=== PATIENT | female | born 1955 | race Caucasian/White ===

== ENCOUNTER 2024-06-05 10:31 | Day surgery (SDC) | payer MEDICARE ==
[~2024-06-05] VITALS: Ht 167.6 cm; Wt 91.3 kg
[~2024-06-05 10:31] MED LIST: AMLO1TAB24 PO; ASPI81TA26 PO; ATOR80TA59 PO; B-122500 PO; CALC600T86 PO; CLON0.5T2 PO; D3 H2000 PO; DICY-61 PO; FAMO1TAB11 PO; GABA-1172 PO; LR 1,000 ML IV SCH; MELA5TAB9 PO; MIDAZOLAM INJ 2MG/2ML VIAL As Ordered ONE; PANT20TA6 PO; PRO-CAP PO; SERT50TA29 PO; TRAM50TA2 PO; fentaNYL 100 MCG/2 ML INJECTION As Ordered ONE
[2024-06-05] MEDS: CYCLOPENTOLATE 1% OPHTH SOLN 2ML BTL OD SCH (12:14)
[2024-06-05] MEDS: TETRACAINE 0.5% OPHTH SOLN 4ML OD SCH (12:14)
[2024-06-05] MEDS: PHENYLEPHRINE 2.5% OPHTH SOL 2ML OD SCH (12:14)
[2024-06-05] MEDS: FLURBIPROFEN 0.03% OPHTH SOLN 2.5 ML OD SCH (12:14)
[2024-06-05] MEDS: LIDOCAINE 1% SDV 5ML VIAL As Ordered ONE (13:54)
[2024-06-05] MEDS: CEFUROXIME 1MG/0.1ML INTRACAMERAL INJ As Ordered ONE (13:54)
[2024-06-05 14:18] VITALS: BP 165/67; TEMP 97; O2SAT 93
== END 2024-06-05 15:00 | disposition home or self-care (01) ==
LOC: M SDC 10:31
PROVIDERS: ATTEND Ophthalmology
DX: H25.11 Age-related nuclear cataract, right eye (principal); I10 Essential (primary) hypertension; J44.9 Chronic obstructive pulmonary disease, unspecified; E78.00 Pure hypercholesterolemia, unspecified; I25.2 Old myocardial infarction; Z79.82 Long term (current) use of aspirin; K58.9 Irritable bowel syndrome, unspecified; Z79.899 Other long term (current) drug therapy; K21.9 Gastro-esophageal reflux disease without esophagitis; Z91.048 Other nonmedicinal substance allergy status; Z87.19 Personal history of other diseases of the digestive system; Z90.89 Acquired absence of other organs; Z90.49 Acquired absence of other specified parts of digestive tract; Z88.1 Allergy status to other antibiotic agents; Z87.891 Personal history of nicotine dependence
CPT/HCPCS: 66984; J0697; J2250; J3010; V2632

== ENCOUNTER 2024-06-12 10:34 | Day surgery (SDC) | payer MEDICARE ==
[~2024-06-12] VITALS: Ht 170.2 cm; Wt 91.6 kg
[~2024-06-12 10:34] MED LIST changes: +CYCLOPENTOLATE 1% OPHTH SOLN 2ML BTL OS SCH; +FLURBIPROFEN 0.03% OPHTH SOLN 2.5 ML OS SCH; -MIDAZOLAM INJ 2MG/2ML VIAL As Ordered ONE; +PHENYLEPHRINE 2.5% OPHTH SOL 2ML OS SCH; +TETRACAINE 0.5% OPHTH SOLN 4ML OS SCH; -fentaNYL 100 MCG/2 ML INJECTION As Ordered ONE
[2024-06-12] MEDS ORDERED: fentaNYL 100 MCG/2 ML INJECTION As Ordered ONE (10:49)
[2024-06-12] MEDS ORDERED: MIDAZOLAM INJ 2MG/2ML VIAL As Ordered ONE (10:49)
[2024-06-12] MEDS: LIDOCAINE 1% SDV 5ML VIAL As Ordered ONE (12:20)
[2024-06-12] MEDS: CEFUROXIME 1MG/0.1ML INTRACAMERAL INJ As Ordered ONE (12:25)
[2024-06-12 12:41] VITALS: BP 131/70; TEMP 96.8; O2SAT 96
== END 2024-06-12 13:08 | disposition home or self-care (01) ==
LOC: M SDC 10:34
PROVIDERS: ATTEND Ophthalmology
DX: H25.12 Age-related nuclear cataract, left eye (principal); H25.012 Cortical age-related cataract, left eye; I10 Essential (primary) hypertension; K21.9 Gastro-esophageal reflux disease without esophagitis; Z79.82 Long term (current) use of aspirin; Z88.0 Allergy status to penicillin; I25.2 Old myocardial infarction; K57.92 Diverticulitis of intestine, part unspecified, without perforation or abscess without bleeding; K58.8 Other irritable bowel syndrome; J44.9 Chronic obstructive pulmonary disease, unspecified; Z87.891 Personal history of nicotine dependence; Z79.899 Other long term (current) drug therapy
CPT/HCPCS: 66984; J0697; J2250; J3010; V2632